=== PATIENT | female | born 1970 | race Two or more races ===

== ENCOUNTER 2019-08-19 22:19 | Emergency (ER) | payer SELFPAY ==
[2019-08-19] MEDS ORDERED: Sodium Chloride 0.9% 2.5 ML Syringe FLUSH PRN (22:33)
[2019-08-19] MEDS ORDERED: Sodium Chloride 0.9% 10 ML Syringe FLUSH PRN (22:33)
[2019-08-19] MEDS ORDERED: Ketorolac 30 MG/ML SDV IVPUSH ONE (22:35)
[2019-08-19] MEDS ORDERED: Sodium Chloride 0.9% 1,000 ML IV ONE (22:35)
--- NOTE | 2019-08-19 22:39 | EDM.PDOC ---
ED HPI GENERAL MEDICAL PROBLEM - General Chief Complaint: Abdominal Pain Stated Complaint: BLOATING AND BACK PAIN Time Seen by Provider: 08/19/19 22:23 - History of Present Illness INITIAL COMMENTS - FREE TEXT/NARRATIVE: HISTORY AND PHYSICAL: History of present illness: The patient is a 49-year-old female with no significant past medical history and who is surgical history includes bilateral tubal ligation gallbladder surgery and presents with complaints of 3 days of frequency urgency and decreased urine output without dysuria or hematuria and 24-36 hours of left lower back and flank pain and diffuse abdominal pain and bloating. The patient says that it started with the urinary symptoms but she had no burning so she did not seek care. Then she started experiencing the abdominal bloating and the left flank and lower back pain. She has a history of kidney stones in the past 2 times but did not require surgical intervention. She has no history of renal disease and no diabetes or hypertension. She is not experiencing fever chills nausea vomiting or diarrhea and has no chest pain or shortness of breath. She says she has been drinking fluids and eating normally. She describes the pain as a deep achy pain and she has not taken any [id number] medications for this. She has not had any recent trauma and this left back and flank pain does not radiate to her legs. There is no weakness numbness or tingling in her extremities. Review of systems: As per history of present illness and below otherwise all systems reviewed and negative. Past medical history: As per history of present illness and as reviewed below otherwise noncontributory. Surgical history: As per history of present illness and as reviewed below otherwise noncontributory. Social history: No reported history of drug or alcohol abuse. Family history: As per history of present illness and as reviewed below otherwise noncontributory. Physical exam: General: Well-developed well-nourished mildly overweight female who is nontoxic and vital signs are noted by me. She moves easily in the ED without distress. HEENT: Atraumatic, normocephalic, negative for conjunctival pallor or scleral icterus, mucous membranes moist, throat clear, neck supple, nontender, trachea midline. Lungs: Clear to auscultation, breath sounds equal bilaterally, chest nontender. No wheezing stridor or work of breathing Heart: S1S2, regular, negative for clicks, rubs, or JVD. Abdomen: Soft, nondistended, bowel sounds are hypoactive and there is no tympany on percussion. There is diffuse abdominal tenderness throughout the abdomen not localized to the left side but there is no rebound or guarding. In the suprapubic region the bladder appears to be distended and there is tenderness in this area without rebound or guarding. Negative for masses or hepatosplenomegaly. Negative for costovertebral tenderness. There is some diffuse left back pain extending from the lumbar region up to the thoracic area but it is not CVA tenderness and there is no midline back pain. Pelvis: Stable nontender. Genitourinary: Deferred. Rectal: Deferred. Extremities: Atraumatic, negative for cords or calf pain. Neurovascular unremarkable. No pedal edema or leg asymmetry Neuro: Awake, alert, oriented. Cranial nerves II through XII unremarkable. Cerebellum unremarkable. Motor and sensory unremarkable throughout. Exam nonfocal. Diagnostics: CBC CMP amylase lipase lactic acid UA with reflex might grow in culture CT scan of the abdomen and pelvis, post void bladder scan Therapeutics: IV fluids Toradol Patient only free voided 10 mL of urine and the post void bladder scan revealed 8 mL I discussed with patient and family at bedside all testing results which revealed no acute abnormalities or explanation for her discomfort and bloating. I have stressed the need to follow-up and will place her name on the expedited clinic follow-up and I've informed him of the incidental left pararenal cyst. I have encouraged the patient to push hydration and to monitor his symptoms and reasons to return to the ED The patient says that she does not have a local doctor and usually goes home to [place] when she has a medical problem. Encouraged her to follow-up here in our clinic Impression: Left flank pain/abdominal bloating and pain Definitive disposition and diagnosis as appropriate pending reevaluation and review of above. abdomen Pain Score (Numeric/FACES): 7 - Related Data Allergies Allergy/AdvReac Type Severity Reaction Status Date / Time No Known Allergies Allergy Verified 08/19/19 22:22 Home Meds: Home Meds . 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 ED EXAM, GENERAL - Physical Exam Exam: See Below (See dictation) Course - Vital Signs Last Recorded V/S: Last Vital Signs Temp 36.3 C 08/19/19 22:25 Pulse 98 08/19/19 22:25 Resp 18 08/19/19 22:25 BP 140/79 08/19/19 22:25 Pulse Ox 98 08/19/19 22:25 - Orders/Labs/Meds Orders: Active Orders 24 hr Category Date Time Status Bladder Scan [RC] ASDIRECTED Care 08/19/19 22:35 Active Sodium Chloride 0.9% [Normal Saline] 1,000 ml Med 08/19/19 22:35 Active IV STAT Sodium Chloride 0.9% [Saline Flush] Med 08/19/19 22:33 Active 10 ml FLUSH ASDIRECTED PRN Sodium Chloride 0.9% [Saline Flush] Med 08/19/19 22:33 Active 2.5 ml FLUSH ASDIRECTED PRN Saline Lock Insert [OM.PC] Stat Oth 08/19/19 22:33 Ordered Medication Orders Sodium Chloride (Normal Saline) 1,000 mls @ 999 mls/hr IV STAT ONE Stop: 08/19/19 23:35 Last Admin: 08/19/19 22:46 Dose: 999 mls/hr Sodium Chloride (Saline Flush) 10 ml FLUSH ASDIRECTED PRN PRN Reason: Keep Vein Open Sodium Chloride (Saline Flush) 2.5 ml FLUSH ASDIRECTED PRN PRN Reason: Keep Vein Open Labs: Laboratory Tests 08/19/19 08/19/19 08/19/19 Range/Units 22:35 22:40 22:40 WBC 11.51 H (4.0-11.0) K/uL RBC 4.81 (4.30-5.90) M/uL Hgb 15.0 (12.0-16.0) g/dL Hct 43.9 (36.0-46.0) % MCV 91.3 (80.0-98.0) fL MCH 31.2 (27.0-32.0) pg MCHC 34.2 (31.0-37.0) g/dL RDW Std Deviation 44.4 (28.0-62.0) fl RDW Coeff of Abbie 14 (11.0-15.0) % Plt Count 231 (150-400) K/uL MPV 11.10 (7.40-12.00) fL Neut % (Auto) 49.8 (48.0-80.0) % Lymph % (Auto) 40.1 H (16.0-40.0) % [place] % (Auto) 7.6 (0.0-15.0) % Eos % (Auto) 2.1 (0.0-7.0) % Baso % (Auto) 0.4 (0.0-1.5) % Neut # (Auto) 5.7 (1.4-5.7) K/uL Lymph # (Auto) 4.6 H (0.6-2.4) K/uL Vernon # (Auto) 0.9 H (0.0-0.8) K/uL Eos # (Auto) 0.2 (0.0-0.7) K/uL Baso # (Auto) 0.1 (0.0-0.1) K/uL Nucleated RBC % 0.0 /100WBC Nucleated RBCs # 0 K/uL Lactate (0.20-2.00) mmol/L Sodium 140 (136-145) mmol/L Potassium 3.9 (3.5-5.1) mmol/L Chloride 106 (98-107) mmol/L Carbon Dioxide 23.1 (21.0-32.0) mmol/L BUN 8 (7.0-18.0) mg/dL Creatinine 0.7 (0.6-1.0) mg/dL Est Cr Clr Drug Dosing 78.58 mL/min Estimated GFR (MDRD) > 60.0 ml/min Glucose 100 (74-106) mg/dL Calcium 9.2 (8.5-10.1) mg/dL Total Bilirubin 0.3 (0.2-1.0) mg/dL AST 22 (15-37) IU/L ALT 41 (14-63) IU/L Alkaline Phosphatase 53 (46-116) U/L Total Protein 7.2 (6.4-8.2) g/dL Albumin 3.6 (3.4-5.0) g/dL Globulin 3.6 (2.6-4.0) g/dL Albumin/Globulin Ratio 1.0 (0.9-1.6) Amylase 62 (25-115) U/L Lipase 162 (73-393) U/L Urine Color YELLOW Urine Appearance CLEAR Urine pH 7.0 (5.0-8.0) Ur Specific [place] 1.020 (1.001-1.035) Urine Protein NEGATIVE (NEGATIVE) mg/dL Urine Glucose (UA) NEGATIVE (NEGATIVE) mg/dL Urine Ketones NEGATIVE (NEGATIVE) mg/dL Urine Occult Blood NEGATIVE (NEGATIVE) Urine Nitrite NEGATIVE (NEGATIVE) Urine Bilirubin NEGATIVE (NEGATIVE) Urine Urobilinogen 0.2 (<2.0) EU/dL Ur Leukocyte Esterase NEGATIVE (NEGATIVE) 08/19/19 Range/Units 22:40 WBC (4.0-11.0) K/uL RBC (4.30-5.90) M/uL Hgb (12.0-16.0) g/dL Hct (36.0-46.0) % MCV (80.0-98.0) fL MCH (27.0-32.0) pg MCHC (31.0-37.0) g/dL RDW Std Deviation (28.0-62.0) fl RDW Coeff of Abbie (11.0-15.0) % Plt Count (150-400) K/uL MPV (7.40-12.00) fL Neut % (Auto) (48.0-80.0) % Lymph % (Auto) (16.0-40.0) % Vernon % (Auto) (0.0-15.0) % Eos % (Auto) (0.0-7.0) % Baso % (Auto) (0.0-1.5) % Neut # (Auto) (1.4-5.7) K/uL Lymph # (Auto) (0.6-2.4) K/uL Vernon # (Auto) (0.0-0.8) K/uL Eos # (Auto) (0.0-0.7) K/uL Baso # (Auto) (0.0-0.1) K/uL Nucleated RBC % /100WBC Nucleated RBCs # K/uL Lactate 1.3 (0.20-2.00) mmol/L Sodium (136-145) mmol/L Potassium (3.5-5.1) mmol/L Chloride (98-107) mmol/L Carbon Dioxide (21.0-32.0) mmol/L BUN (7.0-18.0) mg/dL Creatinine (0.6-1.0) mg/dL Est Cr Clr Drug Dosing mL/min Estimated GFR (MDRD) ml/min Glucose (74-106) mg/dL Calcium (8.5-10.1) mg/dL Total Bilirubin (0.2-1.0) mg/dL AST (15-37) IU/L ALT (14-63) IU/L Alkaline Phosphatase (46-116) U/L Total Protein (6.4-8.2) g/dL Albumin (3.4-5.0) g/dL Globulin (2.6-4.0) g/dL Albumin/Globulin Ratio (0.9-1.6) Amylase (25-115) U/L Lipase (73-393) U/L Urine Color Urine Appearance Urine pH (5.0-8.0) Ur Specific [place] (1.001-1.035) Urine Protein (NEGATIVE) mg/dL Urine Glucose (UA) (NEGATIVE) mg/dL Urine Ketones (NEGATIVE) mg/dL Urine Occult Blood (NEGATIVE) Urine Nitrite (NEGATIVE) Urine Bilirubin (NEGATIVE) Urine Urobilinogen (<2.0) EU/dL Ur Leukocyte Esterase (NEGATIVE) Meds: Medications Generic Name Dose Route Start Last Admin Trade Name Freq PRN Reason Stop Dose Admin Sodium Chloride 1,000 mls @ 999 mls/hr 08/19/19 22:35 08/19/19 22:46 Normal Saline IV 08/19/19 23:35 999 mls/hr STAT ONE Administration Sodium Chloride 10 ml 08/19/19 22:33 Saline Flush FLUSH ASDIRECTED PRN Keep Vein Open Sodium Chloride 2.5 ml 08/19/19 22:33 Saline Flush FLUSH ASDIRECTED PRN Keep Vein Open Discontinued Medications Generic Name Dose Route Start Last Admin Trade Name Freq PRN Reason Stop Dose Admin Ketorolac Tromethamine 30 mg 08/19/19 22:35 08/19/19 22:46 Toradol IVPUSH 08/19/19 22:36 30 mg ONETIME ONE Administration Departure - Departure Time of Disposition: 23:24 Disposition: Home, Self-Care 01 Condition: Good Clinical Impression: Left flank pain, Abdominal bloating Abdominal pain Qualifiers: Abdominal location: generalized Qualified Code(s): R10.84 - Generalized abdominal pain - Discharge Information Referrals: PCP,None [Primary Care Provider] - Forms: ED Department Discharge Additional Instructions: The following information is given to patients seen in the emergency department who are being discharged to home. This information is to outline your options for follow-up care. We provide all patients seen in our emergency department with a follow-up referral. The need for follow-up, as well as the timing and circumstances, are variable depending upon the specifics of your emergency department visit. If you don't have a primary care physician on staff, we will provide you with a referral. We always advise you to contact your personal physician following an emergency department visit to inform them of the circumstance of the visit and for follow-up with them and/or the need for any referrals to a consulting specialist. The emergency department will also refer you to a specialist when appropriate. This referral assures that you have the opportunity for followup care with a specialist. All of these measure are taken in an effort to provide you with optimal care, which includes your followup. Under all circumstances we always encourage you to contact your private physician who remains a resource for coordinating your care. When calling for followup care, please make the office aware that this follow-up is from your recent emergency room visit. If for any reason you are refused follow-up, please contact the [facility] emergency department at and ask to speak to the emergency department charge nurse. [facility] Primary care- [place] [address] Push hydration and avoid caffeinated products as we discussed. Use over-the- counter medications for any discomfort and pain and please call the clinic in the morning and schedule a follow-up appointment for reevaluation and further care. Return to ER as needed and as discussed - My Orders Last 24 Hours: My Active Orders 08/19/19 22:33 Sodium Chloride 0.9% [Saline Flush] 10 ml FLUSH ASDIRECTED PRN Sodium Chloride 0.9% [Saline Flush] 2.5 ml FLUSH ASDIRECTED PRN Saline Lock Insert [OM.PC] Stat 08/19/19 22:35 Bladder Scan [RC] ASDIRECTED Sodium Chloride 0.9% [Normal Saline] 1,000 ml IV STAT - Assessment/Plan Last 24 Hours: My Active Orders 08/19/19 22:33 Sodium Chloride 0.9% [Saline Flush] 10 ml FLUSH ASDIRECTED PRN Sodium Chloride 0.9% [Saline Flush] 2.5 ml FLUSH ASDIRECTED PRN Saline Lock Insert [OM.PC] Stat 08/19/19 22:35 Bladder Scan [RC] ASDIRECTED Sodium Chloride 0.9% [Normal Saline] 1,000 ml IV STAT
[2019-08-19 23:10] LABS: BLOOD UREA NITROGEN,BUN 8 mg/dL (7.0-18.0); CARBON DIOXIDE,CO2 23.1 mmol/L (21.0-32.0); CHLORIDE,CL 106 mmol/L (98-107); GLUCOSE RANDOM 100 mg/dL (74-106); LIPASE 162 U/L (73-393); POTASSIUM,K 3.9 mmol/L (3.5-5.1); SODIUM,NA 140 mmol/L (136-145)
--- NOTE | 2019-08-19 23:18 | CT ---
Indication: Left flank and diffuse abdominal pain Technique: Nonenhanced axial CT imaging through the abdomen and pelvis. Sagittal and coronal reconstructions are provided. Comparison: None Findings: There is unremarkable noncontrast appearance of the liver, spleen, pancreas, and adrenal glands. Cholecystectomy clips are noted. There is normal renal parenchymal attenuation without hydronephrosis. Small parapelvic renal cyst is noted on the left. No stones are seen in the renal collecting systems, ureters, or urinary bladder. The stomach and duodenum are unremarkable. There are no abnormally dilated small bowel loops. The appendix is noninflamed. There is no colonic wall thickening. No inflammatory changes are demonstrated in the mesentery. There is no abdominal lymphadenopathy. There is normal caliber of the abdominal aorta. Surgical clip is noted in the right adnexa. The uterus and urinary bladder are unremarkable. The visualized osseous structures are unremarkable. The included lung bases are clear. Impression: No acute process demonstrated in the abdomen and pelvis. No nephrolithiasis or urinary obstruction. Please note that all CT scans at this facility use dose modulation, iterative reconstruction, and/or weight-based dosing when appropriate to reduce radiation dose to as low as reasonably achievable. Dictated by Domingo Landrum MD @ Aug 19 2019 11:07PM Signed by Dr. Domingo Landrum @ Aug 19 2019 11:17PM
== END 2019-08-19 23:45 | disposition home or self-care (01) ==
LOC: MW.ED 22:19
DX: R10.84 Generalized abdominal pain (principal); R14.0 Abdominal distension (gaseous); Z98.51 Tubal ligation status
CPT/HCPCS: 36415; 51798; 74176; 80053; 81003; 82150; 83605; 83690; 85025; 96361; 96374; 99284; J1885; J7040

== ENCOUNTER 2024-07-21 12:27 | Emergency (ER) | payer MEDICAID ==
[2024-07-21 12:51] LABS: APPEARANCE,URINE CLEAR; BILIRUBIN,URINE NEGATIVE (NEGATIVE); GLUCOSE,URINE NEGATIVE (NEGATIVE); KETONES,URINE NEGATIVE (NEGATIVE); LEUKOCYTE ESTERASE,URINE NEGATIVE (NEGATIVE); NITRITE,URINE POSITIVE (NEGATIVE); OCCULT BLOOD,URINE NEGATIVE (NEGATIVE); PH,URINE 5.5 (5.0-8.0); PROTEIN,URINE NEGATIVE (NEGATIVE); UROBILINOGEN,URINE 0.2 EU/dL (<2.0)
[2024-07-21 12:52] LABS: BASOPHILS PERCENT AUTO 1.3 % (0.0-1.0); EOSINOPHILS ABSOLUTE AUTO 0.21 K/uL (0.00-0.45); EOSINOPHILS PERCENT AUTO 2.8 % (0.0-6.0); HEMATOCRIT 47.2 % (37.0-47.0); HEMOGLOBIN 16.2 g/dL (12.0-16.0); IMMATURE GRAN ABSOLUTE AUTO 0.02 K/uL (0.00-0.05); IMMATURE GRAN PERCENT AUTO 0.3 % (0.0-0.4); LYMPHOCYTES ABSOLUTE AUTO 3.34 K/uL (1.00-4.80); LYMPHOCYTES PERCENT AUTO 44.2 % (24.0-44.0); MEAN CORPUSCULAR HEMOGLOBIN 30.3 pg (28.0-32.0); MEAN CORPUSCULAR HGB CONC 34.3 g/dL (32.0-36.0); MEAN CORPUSCULAR VOLUME 88.2 fL (83.0-99.0); MEAN PLATELET VOLUME 10.3 fL (9.4-12.3); MONOCYTES ABSOLUTE AUTO 0.57 K/uL (0.00-0.80); MONOCYTES PERCENT AUTO 7.5 % (0.0-8.0); NEUTROPHILS ABSOLUTE AUTO 3.31 K/uL (1.80-7.70); NEUTROPHILS PERCENT AUTO 43.9 % (41.0-71.0); PLATELET COUNT,PLT 206 K/uL (150-400); RED BLOOD CELL COUNT 5.35 M/uL (4.10-5.30); WHITE BLOOD CELL COUNT,WBC 7.55 K/uL (3.9-11.3)
[2024-07-21 12:54] LABS: COLOR,URINE DARK YELLOW
[2024-07-21 12:57] LABS: BACTERIA,URINE FEW (NEGATIVE); EPITHELIAL CELLS,URINE RARE (NONE-FEW); MUCUS,URINE LIGHT (NONE-MOD); RBC,URINE 0-1 (0-2/HPF); WBC,URINE NONE SEEN (0-5/HPF)
[2024-07-21 13:07] LABS: A/G RATIO 1.1 (0.9-1.6); BILIRUBIN TOTAL 0.6 mg/dL (0.2-1.0); CARBON DIOXIDE,CO2 27.3 mmol/L (21.0-32.0); CREATININE 0.7 mg/dL (0.6-1.0); EST CRCL DRUG DOSING (CG) 71.75 mL/min; POTASSIUM,K 4.2 mmol/L (3.5-5.1); PROTEIN TOTAL,TP 7.7 g/dL (6.4-8.2)
== END 2024-07-21 13:48 | disposition home or self-care (01) ==
LOC: MW.ED 12:27
DX: N39.0 Urinary tract infection, site not specified (principal); Z75.8 Other problems related to medical facilities and other health care
CPT/HCPCS: 36415; 80053; 81001; 85025; 87086; 99283; 99284